=== PATIENT | male | born 2005 | race Caucasian/White ===

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

== ENCOUNTER 2023-04-30 11:05 | Emergency (ER) | payer OTHER ==
--- NOTE | 2023-04-30 12:00 | ED ---
General Adult HPI - General Source: RN notes reviewed <Abeba Gar - Last Filed: 04/30/23 11:58> <Bria Escobar - Last Filed: 04/30/23 16:45> - General Chief complaint: Extremity Injury, Lower Stated complaint: Left Ankle Pain(injury) Time Seen by Provider: 04/30/23 11:59 - History of Present Illness Initial comments: 17-year-old presents the emergency department with a chief complaint of left ankle pain that started saturday04/28/2023. Denies injury. (Abeba Gar) When I went to evaluate the patient, he states that he rolled his ankle 3 days ago when at a bonfire. He has since had pain to the left ankle, but is still able to walk without too much difficulty, states that he is just limping. He has not felt the need to take anything for his pain recently. (Bria Escobar) - Related Data Home Medications Medication Instructions Recorded Confirmed No Known Home Medications 02/02/16 07/14/17 Allergies Allergy/AdvReac Type Severity Reaction Status Date / Time No Known Allergies Allergy Verified 04/30/23 12:02 Review of Systems ROS Other: All systems not noted in ROS Statement are negative. <Abeba Gar - Last Filed: 04/30/23 11:58> ROS Other: All systems not noted in ROS Statement are negative. <Bria Escobar - Last Filed: 04/30/23 16:45> ROS Statement: Those systems with pertinent positive or pertinent negative responses have been documented in the HPI. Past Medical History Past Medical History: No Reported History History of Any Multi-Drug Resistant Organisms: None Reported Past Surgical History: No Surgical Hx Reported Past Psychological History: No Psychological Hx Reported Past Alcohol Use History: None Reported Past Drug Use History: None Reported <Abeba Gar - Last Filed: 04/30/23 11:58> General Exam <Abeba Gar - Last Filed: 04/30/23 11:58> Limitations: no limitations General appearance: alert, in no apparent distress Head exam: Present: atraumatic, normocephalic, normal inspection Respiratory exam: Present: normal lung sounds bilaterally. Absent: respiratory distress, wheezes, rales, rhonchi, stridor Cardiovascular Exam: Present: regular rate, normal rhythm, normal heart sounds. Absent: systolic murmur, diastolic murmur, rubs, gallop, clicks Extremities exam: Present: other (Minor tenderness to palpation over the anterior aspect of the left ankle. Full active and passive range of motion. No overlying deformities. 2+ DP and PT pulses.) Neurological exam: Present: alert, oriented X3, CN II-XII intact Psychiatric exam: Present: normal affect, normal mood Skin exam: Present: warm, dry, intact, normal color. Absent: rash <Bria Escobar - Last Filed: 04/30/23 16:45> - General Exam Comments Initial Comments: Visual Physical Exam Vital signs reviewed General: Well-appearing, nontoxic, no acute distress. Head: Normocephalic, atraumatic Eyes: PERRLA, EOMI ENT: Airway patent Chest: Nonlabored breathing Skin: No visual rash, normal skin tone Neuro: Alert and oriented 3 Musculoskeletal: No gross abnormalities (Abeba Gar) Course Vital Signs 04/30/23 04/30/23 11:59 13:51 Temperature 97.9 F 98.2 F Pulse Rate 84 78 Respiratory 17 18 Rate Blood Pressure 146/83 136/80 O2 Sat by Pulse 98 98 Oximetry Medical Decision Making - Radiology Data Radiology results: report reviewed, image reviewed <Bria Escobar - Last Filed: 04/30/23 16:45> - Medical Decision Making this is a 17-year-old male who presents to the emergency department for left ankle pain. Was pt. sent in by a medical professional or institution? @ -No Did you speak to anyone other than the patient for history? @ -No Did you review nursing and triage notes? @ -Yes, and I agree, it is accurate with regards to the patient's symptoms. Were old charts reviewed? @ -No Differential Diagnosis? @ -Differential Ankle Pain: Fracture, dislocation, contusion, sprain, this is not meant to be an all- inclusive list. EKG interpreted by me (3pts min.)? @ -None X-rays interpreted by me (1pt min.)? @ -X-ray of the left ankle obtained. My interpretation identifies no acute fractures or dislocations. CT interpreted by me (1pt min.)? @ -Not obtained U/S interpreted by me (1pt. min.)? @ -Not obtained What testing was considered but not performed? (CT, X-rays, U/S, labs)? Why? @ -None What meds were considered but not given? Why? @ -None Did you discuss the management of the patient with other professionals? @ -No Did you reconcile home meds? @ -No Was smoking cessation discussed for >3mins.? @ -No Was critical care preformed (if so, how long)? @ -No Were there social determinants of health that impacted care today? How? (Homelessness, low income, unemployed, alcoholism, drug addiction, transportation, low edu. Level, literacy, decrease access to med. care, correction, rehab)? @ -No Was there de-escalation of care discussed even if they declined? (Discuss DNR or withdrawal of care, Hospice)? @ -No What co-morbidities impacted this encounter? (DM, HTN, Smoking, COPD, CAD, Cancer, CVA, Hep., AIDS, mental health diagnosis, sleep apnea, morbid obesity)? @ -None Was patient admitted / discharged? @ -Discharged. X-ray of the left ankle obtained revealing medial clear space widening to just above ligamentous injury and mild soft tissue swelling. Findings discussed with the patient. He declined the need for pain medication at this time. He was put in a Velcro stirrup splint. Information for orthopedic follow-up provided. He is advised to contact them for a follow-up appointment regarding these x-ray findings in the event he needs an MRI for further evaluation. Otherwise advised ibuprofen and Tylenol as needed for pain relief. Undiagnosed new problem with uncertain prognosis? @ -None Drug Therapy requiring intensive monitoring for toxicity (Heparin, Nitro, Insulin, Cardizem)? @ -None Were any procedures done? @ -None Diagnosis/symptom? @ -Left ankle sprain Acute, or Chronic, or Acute on Chronic? @ -Acute Uncomplicated (without systemic symptoms) or Complicated (systemic symptoms)? @ -Uncomplicated Side effects of treatment? @ -None Exacerbation, Progression, or Severe Exacerbation] @ -Not applicable Poses a threat to life or bodily function? @ -No Return precautions reviewed in depth, the patient is instructed to return to the emergency department with any new, worsening, or concerning symptoms. Patient verbalized understanding. This case was discussed in detail with the attending ED physician, Dr. Almanzar. Presentation, findings, and treatment plan discussed in detail as well. (Bria Escobar) Disposition <Abeba Gar - Last Filed: 04/30/23 11:58> Is patient prescribed a controlled substance at d/c from ED?: No <Bria Escobar - Last Filed: 04/30/23 16:45> Clinical Impression: Left ankle sprain Disposition: HOME SELF-CARE Instructions (If sedation given, give patient instructions): Ankle Sprain (ED) Additional Instructions: Return to the emergency department with any new, worsening, or concerning symptoms. Alternate with ibuprofen and Tylenol as needed for pain relief. Apply ice as needed for further relief. Use the ankle stirrup splint as needed for support. Contact orthopedics as listed below for further evaluation, as you may have injured a ligament in your ankle. Referrals: None,Stated [Primary Care Provider] - 1-2 days Donnell Knox MD [Medical Doctor] - 1-2 days
--- NOTE | 2023-04-30 12:52 | XR ---
EXAMINATION TYPE: XR ankle complete LT DATE OF EXAM: 04/30/2023 COMPARISON: Left toe radiograph 07/14/2017 HISTORY: Left ankle pain TECHNIQUE: 3 views of the left ankle are submitted for evaluation. FINDINGS: There is no evidence for fracture or dislocation. Medial clear space widening of 4-5 mm. Mi ld soft tissue swelling of the ankle. IMPRESSION: 1. No evidence for acute fracture. 2. Medial clear space widening to just above ligamentous injury. This can be further evaluated with M RI as clinically indicated. 3. Mild soft tissue swelling of the ankle.
[2023-04-30 13:53] VITALS: BP 136/80; PULSE 78; RESP 18; TEMP 98.2
== END 2023-04-30 13:53 | disposition home or self-care (01) ==
LOC: EC 11:05
DX: S93.402A Sprain of unspecified ligament of left ankle, initial encounter (principal); X50.9XXA Other and unspecified overexertion or strenuous movements or postures, initial encounter
CPT/HCPCS: 99283